=== PATIENT | male | born 1985 ===

== ENCOUNTER 2017-11-04 21:12 | Emergency (ER) | payer OTHER ==
[2017-11-04 21:36] VITALS: BP 150/89; PULSE 88; TEMP 99.3; O2SAT 99
[2017-11-04 22:26] LABS: URINE BILIRUBIN NEGATIVE (NEGATIVE); URINE BLOOD 1+ (NEGATIVE); URINE CLARITY Clear (Clear); URINE COLOR Yellow (YELLOW); URINE GLUCOSE (UA) NORMAL (Normal); URINE LEUKOCYTE ESTERASE NEG Leu/uL (Negative); URINE PROTEIN NEGATIVE (NEGATIVE)
--- NOTE | 2017-11-04 23:05 | C.PDOC ---
History Of Present Illness 32 year old male with PMHx of chronic leg pain presents to the ED c/o subjective fever, generalized body aches for the past 3 days. Patient reports he has been taking Percocert for his leg pain but is not helping with current symptoms. Patient also c/o of passing very little urine. Patient denies dysuria , hematuria, back pain, rash, chills, nausea, vomit, diarrhea or URI sx. Time Seen by Provider: 11/04/17 21:49 Chief Complaint (Nursing): Flu-like Symptoms History Per: Patient History/Exam Limitations: no limitations Onset/Duration Of Symptoms: Days Current Symptoms Are (Timing): Still Present Recent travel outside of the [place]: No Additional History Per: Patient Past Medical History Reviewed: Historical Data, Nursing Documentation, Vital Signs Vital Signs: Last Vital Signs Temp 99.3 F 11/04/17 21:32 Pulse 88 11/04/17 21:32 Resp 20 11/04/17 23:11 BP 150/89 11/04/17 21:32 Pulse Ox 99 11/05/17 01:55 - Medical History PMH: Back Problems, Depression Surgical History: No Surg Hx Family History: States: Unknown Family Hx - Social History Hx Tobacco Use: No Hx Alcohol Use: Yes Hx Substance Use: No - Immunization History Hx Tetanus Toxoid Vaccination: No Hx Influenza Vaccination: No Hx Pneumococcal Vaccination: No Review Of Systems Constitutional: Positive for: Fever, Malaise. Negative for: Chills ENT: Negative for: Nose Discharge Respiratory: Positive for: Cough. Negative for: Shortness of Breath Gastrointestinal: Negative for: Nausea, Vomiting, Abdominal Pain Skin: Negative for: Rash Neurological: Negative for: Weakness, Numbness Physical Exam - Physical Exam Appears: Non-toxic, No Acute Distress Skin: Normal Color, Warm, Dry Head: Atraumatic, Normacephalic Eye(s): bilateral: Normal Inspection Nose: No Discharge Oral Mucosa: Moist Neck: Normal ROM, Supple Chest: Symmetrical Cardiovascular: Rhythm Regular, No Murmur Respiratory: Normal Breath Sounds, No Rales, No Rhonchi, No Wheezing Gastrointestinal/Abdominal: Soft, No Tenderness, No Guarding, No Rebound Back: No CVA Tenderness, No Vertebral Tenderness, No Paraspinal Tenderness Extremity: Normal ROM, No Tenderness, No Swelling Extremity: Bilateral: Normal Color And Temperature, Normal ROM Neurological/Psych: Oriented x3, Normal Motor, Normal Sensation Gait: Steady ED Course And Treatment O2 Sat by Pulse Oximetry: 99 (On RA) Pulse Ox Interpretation: Normal Progress Note: Plan: - Toradol 30 mg IM. - UA. On reassessment, patient is resting comfortably, and is in no acute distress. Patient was instructed to follow up with physician/clinic in 1-2 days for further evaluation. Disposition Counseled Patient/Family Regarding: Diagnosis, Need For Followup - Disposition Referrals: Nicole Adame MD [Primary Care Provider] - Disposition: HOME/ ROUTINE Disposition Time: 23:03 Condition: STABLE Additional Instructions: Amalia liquido Amalia motrin por el dolor Sigue con pina doctor primario regresa si peor Prescriptions: Ibuprofen [Motrin] 600 mg PO Q6H #20 tab Instructions: Muscle and Bone Pain (DC) Forms: Thumb (Greek) Print Language: KHMER - Clinical Impression Clinical Impression: Myalgia - PA / COMPUTER ENGINEERING TECHNOLOGIST / Resident Statement MD/DO has reviewed & agrees with the documentation as recorded. - Scribe Statement The provider has reviewed the documentation as recorded by the Scribe Srinivasa hCampion All medical record entries made by the Scribe were at my direction and personally dictated by me. I have reviewed the chart and agree that the record accurately reflects my personal performance of the history, physical exam, medical decision making, and the department course for this patient. I have also personally directed, reviewed, and agree with the discharge instructions and disposition.
[2017-11-04 23:11] VITALS: RESP 20
== END 2017-11-04 23:11 | disposition home or self-care (01) ==
LOC: C.ER 21:12 → SUPCPDRO 21:12 → C.ER 23:11
DX: M79.1 Myalgia (principal)
CPT/HCPCS: 81001; 96372; 99284; J1885